=== PATIENT | female | born 1995 | race Caucasian/White ===

== ENCOUNTER 2023-04-07 17:35 | Emergency (ER) | payer OTHER, MEDICAID, SELFPAY ==
[2023-04-07 17:37] VITALS: BP 134/88; PULSE 62; RESP 24; TEMP 36.7; O2SAT 99; BMI 21.2
[2023-04-07] MEDS: IBUPROFEN 400 MG TABLET 600 MG PO (18:25)
--- NOTE | 2023-04-07 19:09 | ED.ANIMALBIT ---
HPI - Animal Bite General Chief Complaint: Animal Bite Stated Complaint: dog bite Time Seen by Provider: 04/07/23 19:09 Source: patient Mode of arrival: Ambulatory History of Present Illness HPI narrative: Patient is a 27-year-old female who presents today with dog bite to the face. She reports it is her friend's dog. He is in quite a bit of pain. Bit to the right cheek. Dog shots are up-to-date. She was offered tetanus but has already declined. I just enter the room after she yelled and screamed needing stating that she needed help. Related Data Previous Rx's Medication Instructions Recorded amoxicillin 875 mg-potassium 1 tab PO BID #20 tabs 04/07/23 clavulanate 125 mg tablet Allergies Allergy/AdvReac Type Severity Reaction Status Date / Time No Known Drug Allergies Allergy Verified 04/07/23 17:37 Review of Systems Review of Systems ROS Unobtainable: All systems reviewed & are unremarkable except as noted in HPI and below Patient History Social History Smoking Status: Never smoker Smoking Status: Never smoker Substance Use Type: marijuana Exam Initial Vital Signs Initial Vital Signs: Vital Signs Temperature 98.0 F 04/07/23 17:37 Pulse Rate 62 04/07/23 17:37 Respiratory Rate 24 04/07/23 17:37 Blood Pressure 134/88 04/07/23 17:37 Pulse Oximetry 99 04/07/23 17:37 Oxygen Delivery Method Room Air 04/07/23 17:37 GENERAL: Tearful alert 27-year-old female, multiple piercings on face CARDIOVASCULAR: peripheral pulses in tact, cap refill <2 sec RESPIRATORY: No respiratory distress, speaks in full sentences without difficulty EXTREMITIES: Normal range of motion, no clubbing or edema. Neurovascularly intact NEUROLOGICAL: Cranial nerves II through XII grossly intact. Normal gait and speech. SKIN: Right cheek 3 cm laceration good skin approximation it does not go through into the mouth. Procedures Laceration Repair Laceration 1: Site: face Side (If applicable): right Size (cm): 3 Description: linear Depth: simple, single layer Local Anesthetic: lidocaine 1% and with epi Amount of anesthesia used (mL): 5 Pre-repair: wound explored, irrigated extensively and deep structures intact Skin layer closed with: other (Chromic gut) Skin layer suture size: 5-0 Number of sutures: 5 Technique: simple, interrupted Course Orders Ordered: Discontinued Medications Amoxicillin/Clavulanate Potassium (Amoxicillin/Clav 875/125 Mg) 1 tab PO NOW ONE Stop: 04/07/23 19:10 Last Admin: 04/07/23 19:54 Dose: 1 tab Documented By: DYANA Diphtheria/Tetanus/Acell Pertussis (Tet,Diph,Pertuss(Acell),Vac/Pf 0.5 Ml Syringe) 0.5 ml IM .ONCE ONE Stop: 04/07/23 17:49 Last Admin: 04/07/23 17:49 Dose: Not Given Documented By: LORENA Ibuprofen (Ibuprofen 400 Mg Tablet) 600 mg PO NOW ONE Stop: 04/07/23 18:23 Last Admin: 04/07/23 18:25 Dose: 600 mg Documented By: LUISA Vital Signs Vital signs: Vital Signs - 8 hr 04/07/23 17:37 Temperature 98.0 F Pulse Rate 62 Respiratory Rate 24 Blood Pressure 134/88 Pulse Oximetry 99 Oxygen Delivery Method Room Air MDM - Animal Bite MDM Narrative Medical decision making narrative: Patient 27-year-old female with dog bite to face. Was her friend's dog bending down she bit her face. It does not go through into the cheek. It was easily repaired. She initially was quite agitated and angry about the wait and then was very cooperative for the procedure. She is given her 1st dose of Augmentin in the ED prescription is sent. She is taking ibuprofen only. Discharge Plan Departure Patient Disposition: Home Clinical Impression: Dog bite Instructions: DI for Laceration Repair, DI for Dog Bite Activity Restrictions/Additional Instructions: *You have been diagnosed with right facial laceration from dog *What to do: Keep face clean and dry. You soap and water. Do not apply face product to area of sutures. Please apply antibiotic ointment 1-2 times daily. *Continue to take medications as directed Augmentin 875 mg twice a day for 10 days *Follow up with your primary care provider in 2-3 days or call [phone] *Return to ER if you should have increased redness swelling pain fever or any new, worsening or concerning symptoms Prescriptions: New amoxicillin-pot clavulanate 875-125 mg tablet 1 tab PO BID Qty: 20 0RF Stand Alone Forms: Patient Portal/API
--- NOTE | 2023-04-07 19:11 | PC.NURSE ---
Pt screaming in room for help. Startled staff and other patients. I went to room and found pt a/o x 4 who states NOBODY HAS FUCKING HELPED ME. Pt had received ibuprofen for pain. Wound had been cleaned and irrigated. Primary nurse has checked on pt frequently. I discussed triage, that most ill people have to be assisted first. Pt continues to be angry. Told me that she was FUCKING DYING. I informed her that she was not in fact dying and screaming for help in an emergency department was inappropriate. I attempted to explore anxiety reduction. She then told me I was stressing her out. I told her that she was not being held against her will and if she felt she should leave she could. She is angry that there is only one provider on. Dr. Jarquin came in to the room and was updated. Pt asked Dr. Jarquin if she was sober. Friend in room. Pt ambulatory. Wound with no active bleeding.
--- NOTE | 2023-04-07 19:18 | PC.NURSE ---
Addendum entered by Latonya Angeles R.N. 04/07/23 19:21: Late entry, around 1800 RN checked on pt, pt requested ibuprophen. Ordered obtained. Warm blankets provided, RN asked pt if anything else was needed including additional wound cleansing. pt declined. RN provided gauze at bedside in case pt had any drainage from wound. Encouraged pt to ask for help if needed. Updated pt on wait time. Original Note: RN checked on pt, pt requested ibuprophen. Ordered obtained. Warm blankets provided, RN asked pt if anything else was needed including additional wound cleansing. pt declined. RN provided gauze at bedside in case pt had any drainage from wound. Encouraged pt to ask for help if needed. Updated pt on wait time.
[2023-04-07] MEDS: AMOXICILLIN/CLAV 875/125 MG 1 TAB PO (19:54)
== END 2023-04-07 20:03 | disposition home or self-care (01) ==
PROVIDERS: Emergency Provider Emergency Medicine
DX: S01.451A Open bite of right cheek and temporomandibular area, initial encounter (principal); W54.0XXA Bitten by dog, initial encounter
CPT/HCPCS: 12002; 99283